=== PATIENT | male | born 1950 | race Caucasian/White ===

== ENCOUNTER 2017-02-20 08:20 | Day surgery (SDC) | payer OTHER ==
[2017-02-19 08:17] LABS: HEMATOCRIT 33.7 % (40.0-51.0); HEMOGLOBIN 11.2 g/dL (13.6-17.8)
[2017-02-19 08:38] LABS: BUN (BLOOD UREA NITROGEN) 26 MG/DL (6-23); CALCIUM, SERUM 9.1 MG/DL (8.5-10.4); CHLORIDE, SERUM 103 MMOL/L (96-112); CO2 (CARBON DIOXIDE) 31 MMOL/L (24-34); CREATININE 1.62 MG/DL (0.70-1.30); GFR AFRICAN AMERICAN 51 ML/MIN (>=60); GFR NON AFRICAN AMERICAN 44 ML/MIN (>=60); GLUCOSE, SERUM 164 MG/DL (60-99); POTASSIUM, SERUM 4.3 MMOL/L (3.5-5.3); SODIUM, SERUM 139 MMOL/L (135-148)
--- NOTE | ~2017-02-20 | OP ---
Record Of Operation [facility] [address] [place]. [address] NAME: CORBY SELLERS : 50 STATUS : [facility]#: [id number] AGE: 66 ADM/REG DATE : 02/20/17 MR#: [id number] REPORT SERV DATE: 02/20/17 DICTATED BY: THEO GARCIA DATE: 02/20/17 REPORT STATUS : Draft TRANSCRIBED BY: MODRoland DATE: 02/20/17 DATE OF PROCEDURE: 02/20/2017 PREOPERATIVE DIAGNOSES: 1. 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 2. 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 3. Morbid obesity. BMI 34.1. 4. Hypertension. 5. Medical noncompliance with blood glucose control and offloading of foot. POSTOPERATIVE DIAGNOSES: 1. 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 2. 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 3. Morbid obesity. BMI 34.1. 4. Hypertension. 5. Medical noncompliance with blood glucose control and offloading of foot. PROCEDURE: Left 2nd toe amputation. ANESTHESIA: General. SURGEON: Theo Garcia M.D. SUPERVISOR VARNISH: [place]. COMPLICATIONS: None. DRAINS: None. ESTIMATED BLOOD LOSS: 10 mL. OPERATIVE TECHNIQUE: The patient was brought to the operating room, placed on the table in supine position. He had preoperative IV antibiotics. He had sequential hose in place. He voided prior to procedure. He underwent general endotracheal anesthesia, and his left foot was prepped and draped in sterile fashion and time-out was completed. A racquet incision was made around the left 2nd toe and it was carried down to the level of the bone at the proximal phalanx. Electrocautery was then used to dissect circumferentially into the joint capsule and the bone was disarticulated. The soft tissue completely excised and the toe was sent to Pathology. The wound was irrigated and hemostasis was noted. The deep subcutaneous tissues were reapproximated using interrupted 3-0 Vicryl sutures. The skin edges were reapproximated using horizontal mattress 3-0 Prolene suture. Aquacel Ag was placed over the incision as well as the plantar ulcer that was clean from debridement yesterday along with dry gauze, roll gauze, and an Alex bandage. He was extubated and taken to the recovery room in stable condition. All sponge and needle counts reported correct. Record Of Operation [place] [id number] [place]. [address] NAME: CORBY SELLERS : 50 STATUS : [facility] PAT#: [id number] AGE: 66 ADM/REG DATE : 02/20/17 MR#: [id number] REPORT SERV DATE: 02/20/17 DICTATED BY: THEO GARCIA DATE: 02/20/17 REPORT STATUS : Draft TRANSCRIBED BY: MODL DATE: 02/20/17 /ELLY Theo Garcia M.D. / [id number] CC: Justine Baires M.D. [facility]
[~2017-02-20 08:20] MED LIST: AMOXIL500 MG PO; ASAB PO; BIAXIN5 PO; CIP5 PO; CYMBALTA30 PO; DSS PO; FLAG500TAB PO; HUMALOG SC; HUMALOGMIX SC; HYDROCHLOROT25 MG PO; HYDROCODONE APAP; L20 PO; LEVAQUIN750 MG PO; LEVEMFLXPN SQ; LEVEMIR SC; LEVOTHYROXIN50 MCG PO; LIPITOR20 PO; LIPITOR40 PO; LORTAB10 PO; MAG/CAL/ZINC PO; MAGOX4 PO; MIRALAXPKT PO; NEUR600 PO; NEUR800 PO; NEXIUM40 PO; NORCO1 TAB PO; NORV10 PO; NORV5 PO; NOVOLOG SC; PLAVIX PO; PRILO PO; PRINZIDE1 TAB PO; SYN.05 PO; VISINE0.05 % OPH; ZANAFLEX 4 MG TA4 MG PO; ZESTORETIC1 TAB PO; ZOCOR40 PO
== END 2017-02-20 15:53 | disposition home or self-care (01) ==
LOC: SDC 08:20
PROVIDERS: Surgery
PROC: 0HTRXZZ Resection of Toe Nail, External Approach (ICD-10-PCS; 2017-02-20)
PROC: 0QBR0ZZ Excision of Left Toe Phalanx, Open Approach (ICD-10-PCS; principal; 2017-02-20 10:00)
DX: E11.69 Type 2 diabetes mellitus with other specified complication (principal); E11.621 Type 2 diabetes mellitus with foot ulcer; M86.172 Other acute osteomyelitis, left ankle and foot; L97.524 Non-pressure chronic ulcer of other part of left foot with necrosis of bone; E11.65 Type 2 diabetes mellitus with hyperglycemia; E11.42 Type 2 diabetes mellitus with diabetic polyneuropathy; I10 Essential (primary) hypertension; G47.00 Insomnia, unspecified; M51.26 Other intervertebral disc displacement, lumbar region; M25.512 Pain in left shoulder; M25.511 Pain in right shoulder; K59.00 Constipation, unspecified; F41.9 Anxiety disorder, unspecified; E66.01 Morbid (severe) obesity due to excess calories; Z68.34 Body mass index [BMI] 34.0-34.9, adult; Z91.14 Patient's other noncompliance with medication regimen; Z98.890 Other specified postprocedural states; Z88.1 Allergy status to other antibiotic agents; Z88.2 Allergy status to sulfonamides; Z79.82 Long term (current) use of aspirin; Z79.2 Long term (current) use of antibiotics; Z79.4 Long term (current) use of insulin; Z79.899 Other long term (current) drug therapy; Z98.41 Cataract extraction status, right eye; Z98.42 Cataract extraction status, left eye; Z96.1 Presence of intraocular lens; Z89.421 Acquired absence of other right toe(s); Z86.14 Personal history of Methicillin resistant Staphylococcus aureus infection; Z90.79 Acquired absence of other genital organ(s)
CPT/HCPCS: 80048; 82962; 85014; 85018; 88305; 88311; 93005; J0690; J2405; J3010